=== PATIENT | female | born 1970 | race Caucasian/White ===

== ENCOUNTER 2022-08-24 14:35 | Emergency (ER) | payer BC ==
[~2022-08-24] VITALS: Ht 162.6 cm; Wt 118.8 kg
[2022-08-24 14:42] VITALS: BP_SYST 174
--- NOTE | 2022-08-24 16:23 | NUR ---
PT WISHES TO LEAVE, TRIAGED BUT NO MSE. LWBS. PT MADE AWARE OF UNKNOWN RISKS WITH LEAVING. PT STILL WANTS TO LEAVE. AAOX4. AMBULATORY. NAD NOTED. WRIST BAND REMOVED. PT AMBULATED TO EXIT WITH FAMILY.
== END 2022-08-24 16:23 | disposition left against medical advice (07) ==
LOC: SED 14:35
DX: R22.0 Localized swelling, mass and lump, head (principal); Z53.21 Procedure and treatment not carried out due to patient leaving prior to being seen by health care provider